=== PATIENT | female | born 2000 | race Hispanic/Latino ===

== ENCOUNTER 2024-10-22 23:28 | Emergency (ER) | payer MEDICAID ==
[~2024-10-22] VITALS: Ht 162.6 cm; Wt 95.3 kg
[2024-10-23 00:04] LABS: RAPID GROUP A STREP negative (NEGATIVE)
[2024-10-23 00:05] LABS: SARS-CoV-2, RNA, NAAT NEGATIVE SARS CoV-2 (NEGATIVE)
[2024-10-23 00:12] LABS: INFLUENZA TYPE A Negative For Type A (NEGATIVE); INFLUENZA TYPE B Negative For Type B (NEGATIVE)
[2024-10-23] MEDS: acetaMINOPHEN 500 MG TABLET PO ONE (00:18)
--- NOTE | 2024-10-23 00:28 | HMCIMG ---
CHEST 1VW HISTORY: Shortness of breath COMPARISON: 05/09/2014 FINDINGS: A frontal projection of the chest was obtained. No acute pulmonary infiltrates is seen. The heart is normal in size. Prominent interstitial markings are seen. No evidence of aortic calcification is seen. IMPRESSION: 1. No acute pulmonary infiltrate is seen. Prominent interstitial markings are seen
[2024-10-23 00:50] VITALS: PULSE 81; RESP 20
[2024-10-23] MEDS: IpraTROPium 0.5 MG/2.5 ML INH IH ONE (00:50)
--- NOTE | 2024-10-23 01:18 | ERN ---
General Chief Complaint: Cough Stated Complaint: C/O COUGH, SORE THROAT, PHLEGM, CONGESTION X 2 DAY Time Seen by MD: 23:40 Time Seen by Midlevel: 23:40 Source: patient History of Present Illness Initial Comments The patient is a 24-year-old female who is currently 20 weeks presenting to the emergency department for evaluation of flu-like symptoms. Symptoms consist of cough, congestion, sore throat, and some mild shortness of breath. This her symptoms have been ongoing for two days. She specifically denies any vaginal bleeding, abdominal pain, dysuria, hematuria, or any other symptoms. Allergies: Coded Allergies: No Known Allergies (Unverified Allergy, Unknown, 10/22/24) Past Medical History Past Medical History: No Pertinent History Past Surgical History: None Female( History) : 1 Para: 0 Aborts: 0 ROS Dictation CONSTITUTIONAL: Negative except for HPI HEAD/FACE: Negative except for HPI EENT: Negative except for HPI RESPIRATORY: Negative except for HPI GASTROINTESTINAL/ABDOMINAL: Negative except for HPI GENITOURINARY: Negative except for HPI MUSCULOSKELETAL: Negative except for HPI INTEGUMENTARY: Negative except for HPI NEUROLOGICAL/PSYCH: Negative except for HPI HEMATOLOGIC/LYMPHATIC: Negative except for HPI All Systems Negative, Except as noted above. 13 point review of systems assessed and all negative except for above. Physical Exam Physical Exam Dictation Vital Signs reviewed General Appearance: Alert, oriented x 3, no acute distress, well developed, nourished. Head and Face: non-traumatic. Eyes: PERRL, pink conjunctivas, eyelid no trauma, anterior chamber with arcus senilis. Ears: Pinnas intact and no signs of trauma or erythema ear canals clear and no discharge TM no erythema Nose: No discharge, no bleeding. Oropharynx: Mouth normal, tongue pink, pharynx clear,no erythema, tonsils no exudates, no abscesses noted, mucous membrane moist Neck: Supple, non-tender, no thyromegaly, no masses, no JVD, no bruits Breast:Deferred Chest:No tenderness, no crepitus, no paradoxical movement, no retractions Lungs:Clear, well-ventilated, symmetric, no rales, no wheezing, no rhonchi, no stridor, good breath sounds bilaterally Heart: Regular rate, regular rhythm, no murmur, no gallops Vascular: no peripheral edema, Abdomen: Gravid abdomen, positive bowel sounds, nondistended, no guarding, nontender, no rebound, no masses no hepatomegaly, no splenomegaly, no Contreras's sign, no hernias. Rectal: Deferred Genital: Deferred Neurological: Normal speech, motor function intact, sensory function intact Musculoskeletal: Neck nontender, full range of motion, back nontender, full range of motion, Extremities: nontender, full range of motion Skin: Color pink, dry, no turgor, no rash, no lacerations, no abrasions, no contusions. Lymphatic: Deferred Results Laboratory and Microbiology Lab and Micro Result Laboratory Tests Test 10/22/24 23:32 Influenza Type A Antigen Negative For Type A Influenza Type B Antigen Negative For Type B SARS-CoV-2, RNA, NAAT NEGATIVE SARS CoV-2 Group A Streptococcus Rapid negative (NEGATIVE) Labs Reviewed?: Yes MDM MDM: The patient is a 24-year-old female who is currently 20 weeks presenting to the emergency department for evaluation of flu-like symptoms. Symptoms consist of cough, congestion, sore throat, and some mild shortness of breath. This her symptoms have been ongoing for two days. She specifically denies any vaginal bleeding, abdominal pain, dysuria, hematuria, or any other symptoms. On physical examination the patient was in no acute respiratory distress. She does have some postnasal drip and erythema to the posterior oropharynx. Initial vital signs are stable. Patient was afebrile and nontoxic appearing. I offered a chest x-ray and patient agreed. I did discussed the risks during and she was okay with going ahead with a chest x-ray. Chest x-ray was obtained which does not reveal any evidence of pneumonia. A breathing treatment was administered. She does report feeling slightly improved but states she will be follow up with her OBGYN tomorrow. Symptoms are most likely viral in nature. She was advised to continue Tylenol as needed for her sore throat. Her respiratory swabs including strep was negative. No need for antibiotics at this time. The patient will be following up with her OBGYN tomorrow. Differential diagnosis: Viral syndrome, upper respiratory infection, strep There are no social concerns with this patient. Prescription drug management Prescriptions will include: None Medical management and examination interpretation discussions were had by me with other qualified healthcare professionals as indicated for the patient's care. ED Course Orders Procedure Category Date Status Time Covid Rna Naat LAB 10/22/24 Complete 23:30 Influenza Type A & B, LAB 10/22/24 Complete Rapid 23:30 Rapid (Group A Strep) LAB 10/22/24 Complete 23:30 Chest 1vw RAD 10/22/24 Resulted 23:40 Acetaminophen 500mg PHA 10/23/24 Complete Tab (Tylenol 500mg T 00:00 Ipratropium 0.5 PHA 10/23/24 Complete Mg/2.5 Ml Inh 01:00 Current Medications Medications (Trade) Dose Ordered Sig/Alix Route PRN Reason Start Time Stop Time Status Last Admin Dose Admin Acetaminophen (TYLenol 500MG TAB) 1,000 mg ONCE ONCE PO 10/23/24 00:00 10/23/24 00:01 DC 10/23/24 00:18 Ipratropium Byron (AtrovENT UD) 0.5 MG ONCE ONCE IH 10/23/24 01:00 10/23/24 01:01 DC 10/23/24 00:50 Vital Signs Date Time Temp Pulse Resp B/P (MAP) Pulse Ox O2 Delivery O2 Flow Rate FiO2 10/23/24 01:33 98.8 81 20 130/69 100 Room Air* 0 21 10/23/24 00:50 81 20 10/23/24 00:24 98.8 100 20 129/68 98 Room Air* 0 21 10/22/24 23:33 99.1 98 20 138/75 100 [place] [address] IMAGING REPORT Signed PATIENT: SHANNAN KEARNEY MR#: [id number] : 2000 SEX: F AGE: 24 LOCATION: [facility] ORDER [id number] STATUS: REG ER REPORT#: [id number] SERVICE [id number] REASON: sob ORDERING PHYSICIAN: DRAKE HENRY PROCEDURE: CXR1VW - CHEST 1VW CHEST 1VW HISTORY: Shortness of breath COMPARISON: 05/09/2014 FINDINGS: A frontal projection of the chest was obtained. No acute pulmonary infiltrates is seen. The heart is normal in size. Prominent interstitial markings are seen. No evidence of aortic calcification is seen. IMPRESSION: 1. No acute pulmonary infiltrate is seen. Prominent interstitial markings are seen DICTATED BY: CASSANDRA BARRERA MD DATE: 10/23/2424 ELECTRONICALLY SIGNED BY: CASSANDRA BARRERA MD DATE: 10/23/2427 DX & DISP Disposition: Discharge Departure Impression: Primary Impression: Viral pharyngitis Additional Impression: Bronchitis Condition: Stable Additional Instructions: You have tested negative for influenza a, influenza B, COVID-19, and strep. Your chest x-ray shows no evidence of pneumonia. Continue with Tylenol at home. Follow up with your primary care doctor tomorrow and or your OBGYN for further evaluation. Referrals: SILVINO PATEL (PCP) Time of Disposition: 01:17 I have reviewed the case, and I agree with, Diagnosis and Plan I performed the substantive portion of the visit. I have reviewed and personally made and approve the management plan that is documented in the note by myself or the RUBI. I acknowledge for responsibility for the patient's management plan. DRAKE HENRY Oct 23, 2024 01:18
[2024-10-23 01:33] VITALS: BP 130/69; PULSE 81; RESP 20; TEMP 98.8; O2SAT 100
== END 2024-10-23 01:34 | disposition home or self-care (01) ==
LOC: EDH 23:28
DX: J02.8 Acute pharyngitis due to other specified organisms (principal); B97.89 Other viral agents as the cause of diseases classified elsewhere; J40 Bronchitis, not specified as acute or chronic; Z20.822 Contact with and (suspected) exposure to COVID-19
CPT/HCPCS: 71045; 87635; 87804; 87880; 94640; 99283; 99284